=== PATIENT | male | born 1960 | race Caucasian/White ===

== ENCOUNTER 2019-02-11 21:54 | Inpatient (IN) | payer OTHER ==
[~2019-02-11] VITALS: Ht 172.7 cm; Wt 99.4 kg
[~2019-02-11 21:54] MED LIST: ASPI81EC; ATOR10; HYDACE5 PO
[2019-02-11 22:38] LABS: BASOPHILS ABSOLUTE AUTO 0.04 K/mm3 (0.00-0.23); BASOPHILS PERCENT AUTO 1 % (0-2); EOSINOPHILS ABSOLUTE AUTO 0.16 K/mm3 (0.00-0.68); EOSINOPHILS PERCENT AUTO 2 % (0-6); Hematocrit 44.4 % (37.0-53.0); IMMATURE GRAN ABSOLUTE AUTO 0.04 K/mm3 (0.00-0.10); IMMATURE GRAN PERCENT AUTO 1 % (0-1); LYMPHOCYTES ABSOLUTE AUTO 2.14 K/mm3 (0.84-5.20); LYMPHOCYTES PERCENT AUTO 28 % (21-46); MONOCYTES ABSOLUTE AUTO 1.05 K/mm3 (0.16-1.47); MONOCYTES PERCENT AUTO 14 % (4-13); Mean Corpuscular HGB 30.9 pg (26.0-34.0); Mean Corpuscular HGB Conc 33.8 g/dL (31.5-36.5); Mean Corpuscular Volume 92 fL (80-100); Mean Platelet Volume 10.6 fL (9.1-12.4); NEUTROPHILS ABSOLUTE AUTO 4.34 K/mm3 (1.96-9.15); NEUTROPHILS PERCENT AUTO 56 % (41-73); Platelet Count 223 K/mm3 (150-400); RDW Coefficient Variation 12.2 % (11.7-14.2); RDW Standard Deviation 40.6 fL (35.1-46.3); Red Blood Cell Count 4.85 M/mm3 (4.30-5.90); White Blood Cell Count 7.77 K/mm3 (4.00-11.30)
[2019-02-11 22:56] LABS: Alanine Aminotransfer (ALT/SGP 42 U/L (12-78); Albumin, Blood 3.6 g/dL (3.4-5.0); Albumin/Globulin Ratio 0.9 (0.8-1.8); Alk Phos 56 U/L (50-136); Anion Gap 8 mmol/L (6-16); Aspartate Aminotrans (AST/SGOT 28 U/L (12-37); Bilirubin, Total 0.2 mg/dL (0.1-1.0); Blood Urea Nitrogen 18 mg/dL (8-24); Bun/Creatinine Ratio 17.3 (12.0-20.0); CO2, Blood 25 mmol/L (21-32); Calcium, Blood 9.5 mg/dL (8.5-10.1); Chloride, Blood 109 mmol/L (98-108); Creatinine, Blood 1.04 mg/dL (0.60-1.20); Glomerular Filtration Rate >60 (60-); Glucose, Blood 113 mg/dL (70-99); Potassium, Blood 3.7 mmol/L (3.5-5.5); Sodium, Blood 142 mmol/L (136-145); Total Protein, Blood 7.6 g/dL (6.4-8.2); Troponin I 0.174 ng/mL (0.000-0.040)
--- NOTE | 2019-02-12 05:48 | NUR ---
SHIFT SUMMARY PT SLEEPING IN ROOM COMFORTABLY AT THIS TIME. NO ACUTE CHANGES IN STATUS SINCE ARRIVAL FROM ED. PT INDEPENDENT IN ROOM AND STEADY ON FEET. DENIES ANY CP SINCE ARRIVAL, DENIES SOB. RESP EVEN UNLABORED ON RA W/ SATS >92%. PT MADE NPO AT 0400 FOR POSSIBLE STRESS TEST THIS AM. DENIED NEEDS. PT SPOUSE AT BEDSIDE. CALL LIGHT IS IN REACH OF PT.
[2019-02-12 07:13] LABS: CHOL/HDL RATIO 7.8; Cholesterol 226 mg/dL (50-200); HDL Cholesterol 29 mg/dL (>39); Low Density Lipoprotein Chol 144 mg/dL (0-110); Triglycerides 265 mg/dL (30-160); Very Low Density Lipoprot Chol 53 mg/dL (6-32)
--- NOTE | 2019-02-12 07:50 | NUR ---
ASSUMED CARE OF PT. ASLEEP AT THIS TIME WITH FAMILY AT THE BEDSIDE. CALL LIGHT AND POSSESSIONS IN REACH, WILL CONTINUE TO MONITOR.
[2019-02-12 09:06] LABS: International Normalized Ratio 1.02; Prothrombin Time Results 10.8 Sec (9.7-11.5)
--- NOTE | 2019-02-12 09:18 | NUR ---
ECHOCARDIOGRAM COMPLETED
--- NOTE | 2019-02-12 09:20 | NUR ---
DR KAYE IN TO SEE PT. DISCUSSED THE PLAN OF TX AND NEW MEDICATIONS. NO FURTHER ORDERS AT THIS TIME.
--- NOTE | 2019-02-12 10:02 | NUR ---
DR. PEACOCK IN TO SEE PT. DISCUSSED WITH PT AND FAMILY ABOUT PLANS FOR PERFORMING AN ANGIOGRAM WITH POSSIBLE STENT PLACEMENT. PT AND FAMILY INDICATED UNDERSTANDING.
--- NOTE | 2019-02-12 12:01 | NUR ---
Patient is lying bed and alert. Patient tells me that he is waiting for an angiogram but he is in good spirits. I explore spiritual beliefs, I provide companionship and prayer. Patient responds well and shows signs of reduced stress. I will continue to remain available to patient and family.
--- NOTE | 2019-02-12 12:04 | NUR ---
Patient is lying in bed and alert. Patient immediately shares about the events that led to her hospital stay. Patient tells me that she is at peace with her medical conditions and with God. I conduct a life review, explore latter day beliefs and provide companionship and prayer. Patient responds well and shows signs of an elevated mood. I will continue to remain available to patient and family.
--- NOTE | 2019-02-12 16:00 | NUR ---
PT TRANSPORTED TO [facility].
--- NOTE | 2019-02-12 17:20 | NUR ---
PT RETURNED TO PCU FROM [facility]. IN NO ACUTE DISTRESS AT THIS TIME. RADIAL TR BAND SITE TO RIGHT WRIST INTACT AT 12CC INFLATION, NO BLEEDING OR HEMATOMA NOTED, PULSES STRONG. DENIES PAIN, DENIES ANY NEEDS AT THIS TIME.
--- NOTE | 2019-02-12 19:23 | NUR ---
PT RESTING IN BED AT THIS TIME IN NO ACUTE DISTRESS. WAS MONITORED EVERY 1-2 HOURS WITH NEEDS MET. DENIES ANY NEEDS AT THIS TIME. CALL LIGHT AND POSSESSIONS IN REACH, FAMILY AT THE BEDSIDE.
[2019-02-13 04:09] LABS: Hematocrit 45.8 % (37.0-53.0); Hemoglobin 15.2 g/dL (13.5-17.5); Mean Corpuscular HGB 30.3 pg (26.0-34.0); Mean Corpuscular HGB Conc 33.2 g/dL (31.5-36.5); Mean Corpuscular Volume 91 fL (80-100); Mean Platelet Volume 10.5 fL (9.1-12.4); Platelet Count 220 K/mm3 (150-400); RDW Coefficient Variation 12.3 % (11.7-14.2); RDW Standard Deviation 40.8 fL (35.1-46.3); Red Blood Cell Count 5.01 M/mm3 (4.30-5.90); White Blood Cell Count 8.26 K/mm3 (4.00-11.30)
[2019-02-13 04:28] LABS: Albumin, Blood 3.4 g/dL (3.4-5.0); Anion Gap 7 mmol/L (6-16); Blood Urea Nitrogen 19 mg/dL (8-24); CO2, Blood 23 mmol/L (21-32); Calcium, Blood 8.9 mg/dL (8.5-10.1); Chloride, Blood 109 mmol/L (98-108); Creatinine, Blood 0.95 mg/dL (0.60-1.20); Glomerular Filtration Rate >60 (60-); Glucose, Blood 90 mg/dL (70-99); Phosphorus, Blood 3.1 mg/dL (2.5-4.9); Potassium, Blood 3.8 mmol/L (3.5-5.5); Sodium, Blood 139 mmol/L (136-145)
--- NOTE | 2019-02-13 06:07 | NUR ---
SHIFT SUMMARY PT SLEEPING IN ROOM COMFORTABLY AT THIS TIME. NO ACUTE CHANGES IN STATUS T/O NIGHT. PT SLEPT WELL. TR BAND WAS DEFLATED PER PROTOCOL AND FULLY REMOVED BY 0000. TEGADERM IN PLACE WITH ARM BOARD. REPS EVEN UNLABORED ONR A W/ SATS >92%. PT DENIED ANY CP OR SOB T/O NIGHT. DENIED NEEDS. PT INDEPENDENT IN ROOM. SPOUSE AT BEDSIDE. CALL LIGHT IN REACH.
--- NOTE | 2019-02-13 07:45 | NUR ---
ASSUMED CARE OF PT. RESTING COMFORTABLY AT THIS TIME IN NO ACUTE DISTRESS. DENIES ANY NEEDS AT THIS TIME. CALL LIGHT AND POSSESSIONS IN REACH, AT THE BEDSIDE. SIDE RAILS UP. WILL CONTINUE TO MONITOR.
[2019-02-13] MEDS ORDERED: ASPI81CH PO (11:03)
[2019-02-13] MEDS ORDERED: ATOR80 PO (11:04)
[2019-02-13] MEDS ORDERED: METO25 PO (11:05)
[2019-02-13] MEDS ORDERED: TICA90TA PO (11:06)
[2019-02-13] MEDS ORDERED: CLOP75 PO (11:17)
--- NOTE | 2019-02-13 12:50 | NUR ---
PT DISCHARGED HOME. ESCORTED OUT WITH W/C, AT PT'S SIDE.
== END 2019-02-13 12:51 | disposition home or self-care (01) | DRG 247 ==
LOC: ER 21:54 → PCU 21:55 → ER 21:55 → PCU 21:55
PROVIDERS: Emergency Medicine; Internal Medicine; ADMIT Internal Medicine
PROC: 027034Z Dilation of Coronary Artery, One Artery with Drug-eluting Intraluminal Device, Percutaneous Approach (ICD-10-PCS; principal; 2019-02-12)
PROC: B2111ZZ Fluoroscopy of Multiple Coronary Arteries using Low Osmolar Contrast (ICD-10-PCS; 2019-02-12)
DX: I21.4 Non-ST elevation (NSTEMI) myocardial infarction (principal); E78.5 Hyperlipidemia, unspecified
CPT/HCPCS: 36415; 71046; 76937; 80053; 80061; 80069; 83036; 84484; 85025; 85027; 85347; 85610; 85730; 93005; 93010; 93306; 93454; 99152; 99153; 99285-25; C1725; C1753; C1769; C1874; C1887; C1894; C9600; J1644; J1650; J2250; J3010; J7030; Q9967